=== PATIENT | female | born 1945 ===

== ENCOUNTER 2020-11-21 18:37 | Emergency (ER) | payer OTHER ==
[~2020-11-21] VITALS: Ht 167.6 cm; Wt 72.6 kg
[2020-11-21] MEDS ORDERED: [UNRECOGNIZED DRUG - OTHER] (19:06)
[2020-11-21] MEDS ORDERED: PREVACID15 MG (19:07)
[2020-11-21] MEDS ORDERED: ELIQUIS5 MG (19:07)
[2020-11-21] MEDS ORDERED: CARVEDILOL 12.5 MG (19:09)
[2020-11-21] MEDS ORDERED: CLOPIDOGREL BIS75 MG (19:10)
[2020-11-21] MEDS ORDERED: ADALAT CC30 MG (19:11)
[2020-11-21] MEDS ORDERED: RESTORIL15 M1 (19:11)
[2020-11-21] MEDS ORDERED: MACROBID 100 M100 MG PO (21:42)
== END 2020-11-21 22:02 | disposition home or self-care (01) ==
LOC: ER 18:37
DX: R31.0 Gross hematuria (principal); N39.0 Urinary tract infection, site not specified